=== PATIENT | male | born 1940 | race Caucasian/White ===

== ENCOUNTER 2025-07-12 08:08 | Observation (INO) ==
--- NOTE | 2025-07-12 08:34 | Emergency Department Note ---
Impression & Plan COVID-19, Hypomagnesemia, Orthostasis, Hypotension, Generalized weakness ED Provider Note NAME: CALEB JOYNER AGE: 85 SEX: M : 1940 ARRIVES VIA: Walk-In INFORMANT: Patient ED PROVIDER(S): Pola Kwong MD CHIEF COMPLAINT: Weakness, dizziness, shortness of breath PLAN: Disposition: Admit MEDICAL DECISION MAKING: The patient is a pleasant 85-year-old gentleman with a past medical of dementia, hypertension, hyperlipidemia, diabetes, BPH who presents to the emergency department via walk-in companied by his daughter and referred by his personal- longterm for evaluation of dizziness, generalized weakness and shortness of breath this morning in setting of having cough congestion and weakness progressing over the past several days. Patient reports that when he was getting up this morning he began to feel acutely dizzy and short of breath. On evaluation the patient is fatigued appearing but no distress, afebrile heart in the 90s and blood pressure 90/50s and vital signs otherwise stable. He appears clinically dry. He exhibits no focal neurologic deficits. Lungs with scant intermittent wheeze and otherwise clear. EKG without overt acute ischemia. CXR negative for acute cardiopulmonary process per my personal preliminary review/interpretation. WBC and platelets within normal limits. H/H 10.7/30.1 without prior for comparison. Chemistry without metabolic acidosis. Magnesium 1.3 with IV repletion initiated. LFTs unremarkable. Initial high-sensitivity troponin 80, nonspecific. Lipase is normal. Procalcitonin is not elevated. TSH within normal limits. UA without convincing evidence of infection. Respiratory BioFire was positive for COVID-19. Patient did feel some improvement following IV fluid hydration. Blood pressure improved and stable. Given the patient's generalized weakness in setting of his age and comorbidities, the patient and his daughter agree with plan for admission for further management. Case was discussed with Bria Melchor PAC with Dr. Larios, [facility] hospitalist, who will evaluate the patient for admission. Further management per admitting team. Triage Nursing notes reviewed and agree them. Prior/external medical records reviewed Vital Signs: reviewed Differential diagnosis: Infection, dehydration, metabolic abnormality, hypo/hyperglycemia, electrolyte disturbance, anemia, hypoxia, cardiac sources, intracerebral event, toxicologic, neurologic, as well as other pathologies. ER treatment provided: See below. Diagnostics interpreted by me: ECG: Sinus rhythm with premature supraventricular complexes, 88 bpm, nonspecific ST and T wave abnormality, no overt ST elevation or depression, QTc 408, QRS 60. Cardiac Monitoring: An order for continuous cardiac monitoring was placed and demonstrated sinus rhythm, 88 bpm, premature supraventricular complexes. Laboratory studies: See below Imaging studies: See below Consultation(s): Case was discussed with Bria Brower [facility] PAC with Dr. Larios, [facility] hospitalist, who will evaluate the patient for admission. HPI: Per MDM. ROS: See above HPI for pertinent positives & negatives. A total of 10 systems reviewed and were otherwise negative. VITALS:See Below PHYSICAL EXAMINATION: GENERAL: Awake, alert, fatigued-appearing, in no distress HENT: Normocephalic, atraumatic. Oropharynx with dry mucous membranes and otherwise unremarkable. EYES: Normal conjunctiva. Sclera non-icteric. EOMI. No nystamgus. PEARRL. NECK: Supple. No nuchal rigidity. FROM. No JVD. RESPIRATORY: Clear to auscultation. CARDIAC: Regular rate, normal rhythm. Extremities warm and well perfused. Pulses equal. ABDOMEN: Soft, non-distended. No tenderness to palpation. No rebound or guarding. No masses. MUSCULOSKELETAL: Chest examination reveals no tenderness. The back is symmetrical on inspection without obvious abnormality. There is no CVA tenderness to palpation. No joint edema. LOWER EXTREMITIES: Calves are equal size bilaterally and non-tender. No edema. No discoloration. NEURO: Cranial nerves II-XII grossly intact. 5/5 strength and SILT x 4 extremities. Intact [id number]. SKIN: No rash or jaundice noted. Pola Kwong MD Past Med/Surg History Problem List (Updated 07/12/25 @ 23:59 by Pola Kwong MD) Hypotension (Acute) Orthostasis (Acute) Generalized weakness (Acute) Hypomagnesemia (Acute) COVID-19 (Acute) Social History Smoking Status: Former smoker Tobacco Type: Cigarettes Second Hand Exposure: No; Do You Dip or Chew Tobacco: No; Hx Alcohol Use: Yes Alcohol type: beer Hx Substance Use: No Preferred Language: Citizen Of [place] Communication Ability: Effective Electrical Sign Wirer Helper Required: No Beliefs That Will Affect Care: None Current Living Situation Comment: [facility] Feels Safe at Home: Yes Assistive Devices: Denture - Upper and Glasses Allergies Allergies Allergy/AdvReac Type Severity Reaction Status Date / Time No Known Allergies Allergy Verified 07/04/25 11:23 Home Meds Home Medications Medication Instructions Recorded Confirmed atorvastatin 40 mg tablet 40 mg PO DAILY 07/04/25 07/12/25 bicalutamide 50 mg tablet 50 mg PO DAILY 07/04/25 07/12/25 buspirone 10 mg tablet 10 mg PO TID 07/04/25 07/12/25 escitalopram oxalate 20 mg tablet 20 mg PO DAILY 07/04/25 07/12/25 insulin glargine 100 unit/mL (3 10 unit subcut BID 07/04/25 07/12/25 mL) subcutaneous pen (Lantus Solostar U-100 Insulin) metformin 500 mg tablet 1,000 mg PO BID 07/04/25 07/12/25 tamsulosin 0.4 mg capsule 0.4 mg PO DAILY 07/04/25 07/12/25 Jardiance 50 mg PO DAILY 07/12/25 07/12/25 Results & Data (ED) Vital Signs Vital Signs - 24 hr 07/12/25 08:09 07/12/25 08:16 07/12/25 08:32 Temperature 36.7 C Temperature Source Skin Pulse Rate 92 H 92 H Pulse Rate from SpO2 Sensor Respiratory Rate 20 20 Respiratory Effort / Characteristics Non-Labored Spontaneous Respiratory Depth Normal Respiratory Pattern Regular Blood Pressure 92/54 L Blood Pressure Mean 66 Pulse Oximetry 97 97 Oxygen Delivery Method Room Air Room Air Room Air Sepsis Recent Fever Within 48 Hours No Sepsis New/Unexplained Change in Mental Status N/A Sepsis Action Taken by Nursing No Action Required 07/12/25 08:57 07/12/25 09:00 07/12/25 09:03 Temperature Temperature Source Pulse Rate 130 H 142 H 85 Pulse Rate from SpO2 Sensor 86 Respiratory Rate 17 16 Respiratory Effort / Characteristics Respiratory Depth Respiratory Pattern Blood Pressure Blood Pressure Mean Pulse Oximetry 98 Oxygen Delivery Method Sepsis Recent Fever Within 48 Hours Sepsis New/Unexplained Change in Mental Status Sepsis Action Taken by Nursing 07/12/25 09:06 07/12/25 09:06 07/12/25 09:06 Temperature Temperature Source Pulse Rate 131 H Pulse Rate from SpO2 Sensor 88 Respiratory Rate 24 Respiratory Effort / Characteristics Respiratory Depth Respiratory Pattern Blood Pressure 174/80 H 174/80 H Blood Pressure Mean 108 108 Pulse Oximetry 97 Oxygen Delivery Method Sepsis Recent Fever Within 48 Hours Sepsis New/Unexplained Change in Mental Status Sepsis Action Taken by Nursing 07/12/25 09:06 07/12/25 09:06 07/12/25 09:06 Temperature Temperature Source Pulse Rate Pulse Rate from SpO2 Sensor Respiratory Rate Respiratory Effort / Characteristics Respiratory Depth Respiratory Pattern Blood Pressure 174/80 H 174/80 H 174/80 H Blood Pressure Mean 108 108 108 Pulse Oximetry Oxygen Delivery Method Sepsis Recent Fever Within 48 Hours Sepsis New/Unexplained Change in Mental Status Sepsis Action Taken by Nursing 07/12/25 09:12 07/12/25 09:21 07/12/25 09:30 Temperature Temperature Source Pulse Rate 81 91 H 83 Pulse Rate from SpO2 Sensor 80 89 84 Respiratory Rate 24 19 18 Respiratory Effort / Characteristics Respiratory Depth Respiratory Pattern Blood Pressure Blood Pressure Mean Pulse Oximetry 98 99 98 Oxygen Delivery Method Sepsis Recent Fever Within 48 Hours Sepsis New/Unexplained Change in Mental Status Sepsis Action Taken by Nursing 07/12/25 09:31 07/12/25 09:31 07/12/25 09:31 Temperature Temperature Source Pulse Rate Pulse Rate from SpO2 Sensor Respiratory Rate Respiratory Effort / Characteristics Respiratory Depth Respiratory Pattern Blood Pressure 158/70 H 158/70 H 158/70 H Blood Pressure Mean 108 108 108 Pulse Oximetry Oxygen Delivery Method Sepsis Recent Fever Within 48 Hours Sepsis New/Unexplained Change in Mental Status Sepsis Action Taken by Nursing 07/12/25 09:31 07/12/25 09:31 07/12/25 09:42 Temperature Temperature Source Pulse Rate 80 Pulse Rate from SpO2 Sensor 80 Respiratory Rate 19 Respiratory Effort / Characteristics Respiratory Depth Respiratory Pattern Blood Pressure 158/70 H 158/70 H Blood Pressure Mean 108 108 Pulse Oximetry 99 Oxygen Delivery Method Sepsis Recent Fever Within 48 Hours Sepsis New/Unexplained Change in Mental Status Sepsis Action Taken by Nursing 07/12/25 09:51 07/12/25 09:51 07/12/25 10:00 Temperature Temperature Source Pulse Rate 90 83 Pulse Rate from SpO2 Sensor 90 82 Respiratory Rate 19 19 Respiratory Effort / Characteristics Non-Labored Spontaneous Respiratory Depth Shallow Respiratory Pattern Blood Pressure Blood Pressure Mean Pulse Oximetry 98 98 Oxygen Delivery Method Room Air Sepsis Recent Fever Within 48 Hours Sepsis New/Unexplained Change in Mental Status Sepsis Action Taken by Nursing 07/12/25 10:00 07/12/25 10:00 07/12/25 10:00 Temperature Temperature Source Pulse Rate Pulse Rate from SpO2 Sensor Respiratory Rate Respiratory Effort / Characteristics Respiratory Depth Respiratory Pattern Blood Pressure 137/68 137/68 137/68 Blood Pressure Mean 100 100 100 Pulse Oximetry Oxygen Delivery Method Sepsis Recent Fever Within 48 Hours Sepsis New/Unexplained Change in Mental Status Sepsis Action Taken by Nursing 07/12/25 10:00 07/12/25 10:00 07/12/25 10:12 Temperature Temperature Source Pulse Rate 82 Pulse Rate from SpO2 Sensor 80 Respiratory Rate 15 Respiratory Effort / Characteristics Respiratory Depth Respiratory Pattern Blood Pressure 137/68 137/68 Blood Pressure Mean 100 100 Pulse Oximetry 97 Oxygen Delivery Method Sepsis Recent Fever Within 48 Hours Sepsis New/Unexplained Change in Mental Status Sepsis Action Taken by Nursing 07/12/25 10:21 07/12/25 10:30 07/12/25 10:42 Temperature Temperature Source Pulse Rate 83 78 76 Pulse Rate from SpO2 Sensor 82 78 77 Respiratory Rate 17 21 15 Respiratory Effort / Characteristics Respiratory Depth Respiratory Pattern Blood Pressure Blood Pressure Mean Pulse Oximetry 98 98 97 Oxygen Delivery Method Sepsis Recent Fever Within 48 Hours Sepsis New/Unexplained Change in Mental Status Sepsis Action Taken by Nursing 07/12/25 11:00 07/12/25 11:03 07/12/25 11:06 Temperature Temperature Source Pulse Rate 96 H 90 88 Pulse Rate from SpO2 Sensor 97 H 92 H 88 Respiratory Rate 19 20 Respiratory Effort / Characteristics Respiratory Depth Respiratory Pattern Blood Pressure Blood Pressure Mean Pulse Oximetry 96 97 98 Oxygen Delivery Method Sepsis Recent Fever Within 48 Hours Sepsis New/Unexplained Change in Mental Status Sepsis Action Taken by Nursing 07/12/25 11:06 07/12/25 11:06 07/12/25 11:06 Temperature Temperature Source Pulse Rate Pulse Rate from SpO2 Sensor Respiratory Rate Respiratory Effort / Characteristics Respiratory Depth Respiratory Pattern Blood Pressure 137/68 137/68 137/68 Blood Pressure Mean 115 115 115 Pulse Oximetry Oxygen Delivery Method Sepsis Recent Fever Within 48 Hours Sepsis New/Unexplained Change in Mental Status Sepsis Action Taken by Nursing 07/12/25 11:06 07/12/25 11:06 07/12/25 11:12 Temperature Temperature Source Pulse Rate 83 Pulse Rate from SpO2 Sensor 82 Respiratory Rate 13 Respiratory Effort / Characteristics Respiratory Depth Respiratory Pattern Blood Pressure 137/68 137/68 Blood Pressure Mean 115 115 Pulse Oximetry 98 Oxygen Delivery Method Sepsis Recent Fever Within 48 Hours Sepsis New/Unexplained Change in Mental Status Sepsis Action Taken by Nursing 07/12/25 11:21 07/12/25 11:30 07/12/25 11:30 Temperature Temperature Source Pulse Rate 88 Pulse Rate from SpO2 Sensor 87 Respiratory Rate 18 Respiratory Effort / Characteristics Respiratory Depth Respiratory Pattern Blood Pressure 137/62 137/62 Blood Pressure Mean 84 84 Pulse Oximetry 97 Oxygen Delivery Method Sepsis Recent Fever Within 48 Hours Sepsis New/Unexplained Change in Mental Status Sepsis Action Taken by Nursing 07/12/25 11:30 07/12/25 11:30 07/12/25 11:30 Temperature Temperature Source Pulse Rate Pulse Rate from SpO2 Sensor Respiratory Rate Respiratory Effort / Characteristics Respiratory Depth Respiratory Pattern Blood Pressure 137/62 137/62 137/62 Blood Pressure Mean 84 84 84 Pulse Oximetry Oxygen Delivery Method Sepsis Recent Fever Within 48 Hours Sepsis New/Unexplained Change in Mental Status Sepsis Action Taken by Nursing 07/12/25 11:30 Temperature Temperature Source Pulse Rate 79 Pulse Rate from SpO2 Sensor 78 Respiratory Rate 19 Respiratory Effort / Characteristics Respiratory Depth Respiratory Pattern Blood Pressure Blood Pressure Mean Pulse Oximetry 98 Oxygen Delivery Method Sepsis Recent Fever Within 48 Hours Sepsis New/Unexplained Change in Mental Status Sepsis Action Taken by Nursing Laboratory Data Attestation: I reviewed the patient's lab results. 07/12/25 08:39 07/12/25 08:39 Lab Results 07/12/25 07/12/25 07/12/25 Range/Units 08:39 08:43 08:50 WBC 5.70 (4.8-10.8) K/ul RBC 3.54 L (4.70-6.10) M/uL Hgb 10.7 L (14.0-18.0) g/dL Hct 30.1 L (42.0-52.0) % MCV 85.0 (80.0-100.0) fL MCH 30.2 (25.0-34.0) pg MCHC 35.5 (32.0-36.0) g/dL RDW Std Deviation 41.1 (36.4-46.3) fL RDW Coeff of Cesar 13.2 (11.5-14.5) % Plt Count 137 (130-400) K/uL MPV 11.6 (9.4-12.4) fL Immature Gran % (Auto) 0.4 % Neut % (Auto) 81.1 % Lymph % (Auto) 8.6 % [place] % (Auto) 9.5 % Eos % (Auto) 0.2 % Baso % (Auto) 0.2 % Neut # (Auto) 4.63 (1.40-6.50) K/uL Lymph # (Auto) 0.49 L (1.20-3.40) K/uL [place] # (Auto) 0.54 (0.11-0.59) K/uL Eos # (Auto) 0.01 (0.00-0.50) K/uL Baso # (Auto) 0.01 (0.00-0.20) K/uL Immature Gran # (Auto) 0.02 (0.01-0.20) K/uL PT 11.7 (9.0-12.0) Seconds INR 1.1 (0.9-1.1) Sodium 135 L (136-145) mmol/L Potassium 4.3 (3.5-5.1) mmol/L Chloride 101 (98-107) mmol/L Carbon Dioxide 26 (21-32) mmol/L Anion Gap 8 (3-11) BUN 19 (6-23) mg/dl Creatinine 1.25 (0.6-1.4) mg/dl Est Cr Clr Drug Dosing 44.0 ml/min eGFR 56.78 BUN/Creatinine Ratio 15.2 (10-20) Glucose 288 H (70-99(Fasting)) mg/dl Calcium 9.1 (8.6-10.3) mg/dl Phosphorus 3.1 (2.5-4.9) mg/dl Magnesium 1.3 L (1.7-2.4) mg/dl Total Bilirubin 0.7 (0.2-1.0) mg/dl AST 13 (13-39) U/L ALT 11 (7-52) U/L Alkaline Phosphatase 85 (34-104) U/L Troponin I High Sens 83.7 H* (0-20) pg/ml Total Protein 6.6 (6.0-8.3) gm/dl Albumin 4.3 (3.4-5.0) gm/dl Globulin 2.3 L (2.5-4.0) gm/dl Albumin/Globulin Ratio 1.9 (0.9-2) Lipase 26 (11-82) U/L Procalcitonin 0.11 (0-0.5) ng/ml TSH 2.294 (0.300-4.500) uIu/ml Urine Color Yellow Urine Appearance Clear (Clear) Urine pH 5.5 (4.5-7.5) Ur Specific [place] 1.017 (1.000-1.030) Urine Protein 1+ H (Negative) Urine Glucose (UA) 1+ H (Negative) Urine Ketones Negative (Negative) Urine Blood Negative (Negative) Urine Nitrite Negative (Negative) Urine Bilirubin Negative (Negative) Urine Urobilinogen Negative (Negative) Ur Leukocyte Esterase Negative (Negative) Urine WBC (Auto) 0-5 (0-5) /hpf Urine RBC (Auto) 0-2 (0-2) /hpf U Hyaline Cast (Auto) 0-2 (0-2) /lpf U Epithel Cells (Auto) 0-2 (0-2) /hpf Urine Bacteria (Auto) None Seen (None Seen) Urine Comment Adenovirus (PCR) Not Detected (NotDetected) B. pertussis DNA (PCR) Not Detected (NotDetected) B.parapertussis DNA PCR Not Detected (NotDetected) C. pneumoniae DNA (PCR) Not Detected (NotDetected) Coronavirus OC43 (PCR) Not Detected (NotDetected) Coronavirus HKU1 (PCR) Not Detected (NotDetected) Coronavirus 229E (PCR) Not Detected (NotDetected) SARS-CoV-2 (PCR) DETECTED A (NotDetected) Coronavirus NL63 (PCR) Not Detected (NotDetected) Human Metapneumovir PCR Not Detected (NotDetected) Influenza Type A (PCR) Not Detected (NotDetected) Influenza Type B (PCR) Not Detected (NotDetected) M. pneumoniae (PCR) Not Detected (NotDetected) Parainfluenza 1 (PCR) Not Detected (NotDetected) Parainfluenza 2 (PCR) Not Detected (NotDetected) Parainfluenza 3 (PCR) Not Detected (NotDetected) Parainfluenza 4 (PCR) Not Detected (NotDetected) RSV (PCR) Not Detected (NotDetected) Entero/Rhino (PCR) Not Detected (NotDetected) 07/12/25 Range/Units 10:31 WBC (4.8-10.8) K/ul RBC (4.70-6.10) M/uL Hgb (14.0-18.0) g/dL Hct (42.0-52.0) % MCV (80.0-100.0) fL MCH (25.0-34.0) pg MCHC (32.0-36.0) g/dL RDW Std Deviation (36.4-46.3) fL RDW Coeff of Cesar (11.5-14.5) % Plt Count (130-400) K/uL MPV (9.4-12.4) fL Immature Gran % (Auto) % Neut % (Auto) % Lymph % (Auto) % [place] % (Auto) % Eos % (Auto) % Baso % (Auto) % Neut # (Auto) (1.40-6.50) K/uL Lymph # (Auto) (1.20-3.40) K/uL [place] # (Auto) (0.11-0.59) K/uL Eos # (Auto) (0.00-0.50) K/uL Baso # (Auto) (0.00-0.20) K/uL Immature Gran # (Auto) (0.01-0.20) K/uL PT (9.0-12.0) Seconds INR (0.9-1.1) Sodium (136-145) mmol/L Potassium (3.5-5.1) mmol/L Chloride (98-107) mmol/L Carbon Dioxide (21-32) mmol/L Anion Gap (3-11) BUN (6-23) mg/dl Creatinine (0.6-1.4) mg/dl Est Cr Clr Drug Dosing ml/min eGFR BUN/Creatinine Ratio (10-20) Glucose (70-99(Fasting)) mg/dl Calcium (8.6-10.3) mg/dl Phosphorus (2.5-4.9) mg/dl Magnesium (1.7-2.4) mg/dl Total Bilirubin (0.2-1.0) mg/dl AST (13-39) U/L ALT (7-52) U/L Alkaline Phosphatase (34-104) U/L Troponin I High Sens 100.2 H* (0-20) pg/ml Total Protein (6.0-8.3) gm/dl Albumin (3.4-5.0) gm/dl Globulin (2.5-4.0) gm/dl Albumin/Globulin Ratio (0.9-2) Lipase (11-82) U/L Procalcitonin (0-0.5) ng/ml TSH (0.300-4.500) uIu/ml Urine Color Urine Appearance (Clear) Urine pH (4.5-7.5) Ur Specific [place] (1.000-1.030) Urine Protein (Negative) Urine Glucose (UA) (Negative) Urine Ketones (Negative) Urine Blood (Negative) Urine Nitrite (Negative) Urine Bilirubin (Negative) Urine Urobilinogen (Negative) Ur Leukocyte Esterase (Negative) Urine WBC (Auto) (0-5) /hpf Urine RBC (Auto) (0-2) /hpf U Hyaline Cast (Auto) (0-2) /lpf U Epithel Cells (Auto) (0-2) /hpf Urine Bacteria (Auto) (None Seen) Urine Comment Adenovirus (PCR) (NotDetected) B. pertussis DNA (PCR) (NotDetected) B.parapertussis DNA PCR (NotDetected) C. pneumoniae DNA (PCR) (NotDetected) Coronavirus OC43 (PCR) (NotDetected) Coronavirus HKU1 (PCR) (NotDetected) Coronavirus 229E (PCR) (NotDetected) SARS-CoV-2 (PCR) (NotDetected) Coronavirus NL63 (PCR) (NotDetected) Human Metapneumovir PCR (NotDetected) Influenza Type A (PCR) (NotDetected) Influenza Type B (PCR) (NotDetected) M. pneumoniae (PCR) (NotDetected) Parainfluenza 1 (PCR) (NotDetected) Parainfluenza 2 (PCR) (NotDetected) Parainfluenza 3 (PCR) (NotDetected) Parainfluenza 4 (PCR) (NotDetected) RSV (PCR) (NotDetected) Entero/Rhino (PCR) (NotDetected) Administered Medications Albuterol (Albut/Ipratrop 3mg/0.5mg Neb 3 Ml Vial) 3 ml NEB Q2H PRN; Protocol PRN Reason: sob wheeze Stop: 08/11/25 19:25 Last Admin: 07/12/25 21:33 Dose: 3 ml Documented By: BRENNON Buspirone HCl (Buspirone 5 Mg Tab) 10 mg PO TID [facility] Stop: 08/11/25 13:59 Last Admin: 07/12/25 21:22 Dose: 10 mg Documented By: Admin: 07/12/25 16:19 Dose: 10 mg Documented By: [email or web address] Guaifenesin (Guaifenesin 600 Mg Tabcr) 600 mg PO Q12 [facility] Stop: 08/11/25 20:59 Last Admin: 07/12/25 21:42 Dose: 600 mg Documented By: BARRIE Heparin Sodium (Porcine) (Heparin Sod 5,000 Unit/0.5 Ml Vial) 5,000 units SQ Q8 [facility] Stop: 08/11/25 15:27 Last Admin: 07/12/25 21:23 Dose: 5,000 units Documented By: Admin: 07/12/25 16:19 Dose: 5,000 units Documented By: jacinta Sodium Chloride (Nss) 1,000 mls @ 60 mls/hr IV .[id number] [facility] Stop: 07/13/25 08:51 Last Admin: 07/12/25 16:19 Dose: 60 mls/hr Documented By: [email or web address] Insulin Aspart (Insulin Aspart Per Unit Charge) 0 units SC ACHS [facility] Stop: 08/11/25 12:44 Last Admin: 07/12/25 21:01 Dose: Not Given Documented By: Admin: 07/12/25 18:39 Dose: 8 units Documented By: [email or web address] Co-signed By: JOCE Admin: 07/12/25 14:27 Dose: 3 units Documented By: Co-signed By: DANTE Insulin Glargine (Lantus Per Unit Charge) 0 units SC [facility]; Protocol Stop: 08/11/25 20:59 Last Admin: 07/12/25 21:01 Dose: Not Given Documented By: BARRIE Menthol (Cough Drop (Sugar Free) Goldy 24 Goldy/1 Box) 1 goldy BUCCAL Q2H PRN PRN Reason: Sore Throat Stop: 08/11/25 19:40 Last Admin: 07/12/25 21:23 Dose: 1 goldy Documented By: BARRIE Discontinued Medications Sodium Chloride (Nss) 500 mls @ 999 mls/hr IV .Q31M ONE Stop: 07/12/25 09:03 Last Infusion: 07/12/25 13:57 Dose: Infused Documented By: Admin: 07/12/25 09:08 Dose: 999 mls/hr Documented By: miroslava Magnesium Sulfate/Dextrose (Magnesium Sulfate / D5w) 1 gm in 100 mls @ 100 mls/hr IV Q1H DARRIAN Stop: 07/12/25 11:29 Last Infusion: 07/12/25 13:57 Dose: Infused Documented By: Admin: 07/12/25 10:49 Dose: 100 mls/hr Documented By: [email or web address] Infusion: 07/12/25 10:44 Dose: Infused Documented By: miroslava Admin: 07/12/25 09:44 Dose: 100 mls/hr Documented By: miroslava Remdesivir 200 mg/ Sodium (Chloride) 250 mls @ 125 mls/hr IV ONE STA Stop: 07/12/25 14:30 Last Infusion: 07/12/25 16:14 Dose: Infused Documented By: [email or web address] Admin: 07/12/25 13:52 Dose: 125 mls/hr Documented By: Magnesium Sulfate/Dextrose (Magnesium Sulfate / D5w) 1 gm in 100 mls @ 50 mls/hr IV ONE ONE Stop: 07/12/25 21:28 Last Infusion: 07/12/25 22:04 Dose: Infused Documented By: Admin: 07/12/25 19:49 Dose: 50 mls/hr Documented By: BARRIE Insulin Glargine (Lantus Per Unit Charge) 10 units SC ONE ONE Stop: 07/12/25 15:31 Last Admin: 07/12/25 16:19 Dose: 10 units Documented By: [email or web address] Co-signed By: JOCE Levalbuterol HCl (Levalbuterol Hcl 0.63 Mg/3 Ml Neb) 0.63 mg NEB NOW STA; Protocol Stop: 07/12/25 09:03 Last Admin: 07/12/25 09:11 Dose: 0.63 mg Documented By: miroslava Imaging Data Radiologist's Impression: Chest X-Ray 07/12/25 08:32 SINGLE VIEW CHEST CLINICAL HISTORY: Chest pain FINDINGS: 2 AP, portable, upright chest radiographs are obtained. No prior studies are available for comparison at the time of dictation. An electronic device projects over the mediastinum. The heart is enlarged noting atherosclerotic calcification of the thoracic aorta. The pulmonary vasculature is noncongested. Enlargement of the central pulmonary arteries suggests pulmonary artery hypertension. Foci of probable scarring are scattered throughout both lungs. No airspace consolidation or large pleural effusion is identified. There are scattered calcified granulomas. No pneumothorax is seen. The skeletal structures are osteopenic. There are chronic/healed left-sided rib fractures. Arthritic change is seen in the shoulders. IMPRESSION: 1. Cardiomegaly with no acute cardiopulmonary abnormality identified. 2. Enlargement of the central pulmonary arteries suggests pulmonary artery hypertension. ACT 112: Negative or not required by law. Electronically signed by: Emory Akbar M.D. 07/12/2025 9:18 AM Discharge Plan Visit Data Chief Complaint: Shortness of Breath/Dyspnea Stated Complaint: TROUBLE BREATHING ED Provider: Pola Kwong Discharge Problem: COVID-19, Hypomagnesemia, Orthostasis, Hypotension, Generalized weakness Patient Disposition: Admitted As Inpatient Condition: Fair Discharge Instructions Interventions: ED Discharge Assessment Last Done: 07/12/25 14:03 Discharge Problem: Hypotension Qualifiers: Hypotension type: unspecified hypotension type Qualified Code(s): I95.9 - Hypotension, unspecified
[2025-07-12 09:00] LABS: Hematocrit (blood only) 30.1 % (42.0-52.0); Hemoglobin 10.7 g/dL (14.0-18.0); Immature Granulocytes # (auto) 0.02 K/uL (0.01-0.20); Immature Granulocytes % (auto) 0.4 %; Mean Corpuscular Hemoglobin 30.2 pg (25.0-34.0); Mean Corpuscular Volume 85.0 fL (80.0-100.0); Platelet Count 137 K/uL (130-400); RDW Standard Deviation 41.1 fL (36.4-46.3); Red Blood Count 3.54 M/uL (4.70-6.10); White Blood Count 5.70 K/ul (4.8-10.8)
[2025-07-12 09:07] LABS: Appearance Urine Clear (Clear); Bacteria Urine Automated None Seen (None Seen); Cast Urine Automated 0-2 /lpf (0-2); Epithelial Cell Urine Auto 0-2 /hpf (0-2); Glucose Urine UA 1+ (Negative); RBC Urine Automated 0-2 /hpf (0-2); WBC Urine Automated 0-5 /hpf (0-5)
[2025-07-12] MEDS: SODIUM CHLORIDE 0.9% 500 ML IV ONE (09:08)
[2025-07-12] MEDS: LEVALBUTEROL HCL 0.63 MG/3 ML NEB NEB STA (09:11)
[2025-07-12 09:18] LABS: Alanine Aminotransferase 11.0 U/L (7-52); Albumin Globulin Ratio 1.9 (0.9-2); Albumin Level 4.3 gm/dl (3.4-5.0); Alkaline Phosphatase 85.0 U/L (34-104); Anion Gap 8.0 (3-11); Bilirubin,Total 0.7 mg/dl (0.2-1.0); Blood Urea Nitrogen 19.0 mg/dl (6-23); Calcium 9.1 mg/dl (8.6-10.3); Carbon Dioxide 26.0 mmol/L (21-32); Chloride 101.0 mmol/L (98-107); Creatinine Clr Calc Pharmacy 44.0 ml/min; Globulin 2.3 gm/dl (2.5-4.0); Glucose 288.0 mg/dl (70-99(Fasting)); Lipase 26.0 U/L (11-82); Magnesium 1.3 mg/dl (1.7-2.4); Potassium 4.3 mmol/L (3.5-5.1); Sodium 135.0 mmol/L (136-145); Total Protein 6.6 gm/dl (6.0-8.3)
--- NOTE | 2025-07-12 09:20 | XRay Report ---
SINGLE VIEW CHEST CLINICAL HISTORY: Chest pain FINDINGS: 2 AP, portable, upright chest radiographs are obtained. No prior studies are available for comparison at the time of dictation. An electronic device projects over the mediastinum. The heart is enlarged noting atherosclerotic calcification of the thoracic aorta. The pulmonary vasculature is no ncongested. Enlargement of the central pulmonary arteries suggests pulmonary artery hypertension. Foc i of probable scarring are scattered throughout both lungs. No airspace consolidation or large pleura l effusion is identified. There are scattered calcified granulomas. No pneumothorax is seen. The skel etal structures are osteopenic. There are chronic/healed left-sided rib fractures. Arthritic change i s seen in the shoulders. IMPRESSION: 1. Cardiomegaly with no acute cardiopulmonary abnormality identified. 2. Enlargement of the central pulmonary arteries suggests pulmonary artery hypertension. ACT 112: Negative or not required by law. Electronically signed by: Emory Akbar M.D. 07/12/2025 9:18 AM
[2025-07-12 09:23] LABS: INR 1.1 (0.9-1.1); Prothrombin Time 11.7 Seconds (9.0-12.0)
[2025-07-12 09:32] LABS: Thyroid Stimulating Hormone 2.294 uIu/ml (0.300-4.500)
[2025-07-12] MEDS: MAGNESIUM SULFATE / D5W 1 GM/100 ML BAG IV SCH (09:44)
[2025-07-12 10:05] LABS: Chlamydia pneumoniae PCR Not Detected (NotDetected); Coronavirus 229E PCR Not Detected (NotDetected); Coronavirus CoV-2 (COVID19)PCR DETECTED (NotDetected); Coronavirus HKU1 PCR Not Detected (NotDetected); Coronavirus NL63 PCR Not Detected (NotDetected); Coronavirus OC43PCR Not Detected (NotDetected); Human Metapneumovirus PCR Not Detected (NotDetected); Parainfluenza Virus 1 PCR Not Detected (NotDetected); Parainfluenza Virus 2 PCR Not Detected (NotDetected); Parainfluenza Virus 3 PCR Not Detected (NotDetected); Parainfluenza Virus 4 PCR Not Detected (NotDetected); Respiratory Syncytial VirusPCR Not Detected (NotDetected); Rhinovirus/Enterovirus PCR Not Detected (NotDetected)
[2025-07-12] MEDS ORDERED: DEXTROSE 50% 50 ML SYRINGE IV PRN (11:54)
[2025-07-12] MEDS ORDERED: CARBOHYDRATES FOR HYPOGLYCEMIA PO PRN (11:54)
[2025-07-12] MEDS ORDERED: PHARMACY GLYCEMIC MGMT CONSULT PRN (11:54)
[2025-07-12] MEDS ORDERED: GLUCOSE 40% GEL 15 GM TUBE PO PRN (11:54)
[2025-07-12] MEDS ORDERED: GLUCAGON FOR INJ 1 MG VIAL SQ PRN (11:54)
[2025-07-12] MEDS ORDERED: GLUCOSE 10 TAB/TUBE PO PRN (11:54)
--- NOTE | 2025-07-12 13:01 | Pharmacy Report ---
Pharmacy Glycemic Short Note 2 - Date of Service July 12, 2025 - Glycemic Short BSG Results (Last 24 hours): 07/12/25 08:39 Glucose 288 H OUTPATIENT ANTIDIABETIC REGIMEN: * Lantus 10 units bid, metformin 500 mg bid ASSESSMENT: * 85 year old admitted with shortness of breath/testing positive for COVID. Pharmacy consulted for glycemic management. Plan to start novolog weight based stress 2 dosing for now. Will follow to determine if steroids starting as may need to tighten parameters at that time. PLAN FOR INPATIENT GLYCEMIC CONTROL: * Hold outpatient oral diabetes medications * Basal insulin * Lantus 0-10 units HS * Bolus insulin * NovoLog per scale ACHS or Q6hrs while NPO * Goal Range: Low 110 mg/dL - High 140 mg/dL * Correction Factor: 30 mg/dL/unit * Nutritional / Prandial insulin per carb ratio of 1 unit per 10 grams CHO consumed
--- NOTE | 2025-07-12 13:33 | History & Physical Report ---
Date of Service July 12, 2025 Assessment & Plan (1) COVID-19: (2) Generalized weakness: (3) Hypomagnesemia: Plan: 85-year-old male with history of dementia, prostate cancer with metastasis, on Lupron, bicalutamide and Flomax, diabetes type 2, hypertension, dyslipidemia presenting from [facility] care unit for dizziness, weakness and shortness of breath which started yesterday. Generalized weakness, dehydration secondary to COVID-19 infection Patient currently on room air Chest x-ray: No signs of pneumonia Procalcitonin: Negative Initial blood pressure was systolic 90s, given 500 cc of IV fluid bolus, improved to systolic 120s Continue IV NSS at 60 cc/h after discussion with patient's children Rowena and Vivian,In light of advanced age, multiple comorbidities, will initiate remdesivir IV monitor kidney and liver function test daily Start Mucinex twice daily Flutter valve, incentive parameter Nebs as needed Heparin subcu for DVT prophylaxis Mild troponin elevation likely demand ischemia secondary to above No chest pain, EKG no signs of acute ischemia or infarct Troponin 83, 100, third set pending Check echocardiogram Diabetes type 2 Hyperglycemia On Lantus 10 units twice daily, metformin 500 mg twice daily Insulin sliding scale, pharmacy glycemic control consulted Hypomagnesemia Magnesium 1.3 Given 2 mg of IV magnesium at the ER, start p.o. magnesium twice daily Repeat magnesium in the morning Other chronic medical problems prostate cancer with metastasis On bicalutamide, Lupron, Flomax Hypertension-not on any meds Dyslipidemia-on atorvastatin Dementia- On buspirone and escitalopram DVT prophylaxis Heparin subcu every 8 hours CODE STATUS DNR as per daughters Disposition Admit to [facility] with telemetry monitoring plan of care discussed with patient and Daughter Rowena at the bedside, daughter Vivian over the phone in detail and at length all questions answered they are understanding, agreeable, comfortable with the plan of care total time spent 60 minutes including discussion with ER provider, review of outpatient inpatient charts, history taking and physical exam of the patient,formulation of plan of care, etc History of Present Illness Chief Complaint: dizziness, weakness, shortness of breath since yesterday Primary Care Provider: Waldo Bowman MD 85-year-old male with history of dementia, prostate cancer with metastasis, on Lupron, bicalutamide and Flomax, diabetes type 2, hypertension, dyslipidemia presenting from [facility] for dizziness, weakness and shortness of breath which started yesterday. History obtained from patient's daughter Rowena at bedside, as well as ER chart. Patient is a current resident of [facility] unit. He was noted to have dry cough, associated with some shortness of breath, and weakness since yesterday. No fevers or chills, arthralgias myalgias, nausea or vomiting, abdominal pain Admits to having poor appetite Today, patient was noted to be very weak to the point that he was unable to get up from bed with persistent dizziness, and shortness of breath. At the ER, blood pressure was 92/54, heart rate 92, respiratory 20, pulse oximetry 97% on room air chest x-ray: No pneumonia Respiratory panel positive for COVID-19 Magnesium 1.3 Patient was given 500 cc bolus of IV NSS, IV magnesium blood pressure then improved to systolic 120s On exam, Patient seen resting in bed, comfortable, not in distress, very pleasant Daughter Rowena at the bedside He is oriented x 2-3, answering simple questions appropriately States he feels "so-so" breathing is okay, denies active chest pain, dizziness, headache, abdominal pain, nausea No other new symptoms Allergies Allergy/AdvReac Type Severity Reaction Status Date / Time No Known Allergies Allergy Verified 07/04/25 11:23 Home Medications Medication Instructions Recorded Confirmed Type atorvastatin 40 mg tablet 40 mg PO DAILY 07/04/25 07/04/25 History bicalutamide 50 mg tablet 50 mg PO DAILY 07/04/25 07/04/25 History buspirone 10 mg tablet 10 mg PO TID 07/04/25 07/04/25 History escitalopram oxalate 20 mg tablet 20 mg PO DAILY 07/04/25 07/04/25 History insulin glargine 100 unit/mL (3 10 unit subcut BID 07/04/25 07/04/25 History mL) subcutaneous pen (Lantus Solostar U-100 Insulin) metformin 500 mg tablet 500 mg PO BID 07/04/25 07/04/25 History tamsulosin 0.4 mg capsule 0.4 mg PO DAILY 07/04/25 07/04/25 History Past Med/Surg History Problem List (Updated 07/12/25 @ 13:28 by Av Larios MD) Generalized weakness Hypomagnesemia (Acute) COVID-19 (Acute) Social History Smoking Status: Former smoker Tobacco Type: Cigarettes Feels Safe at Home: Yes Review of Systems Review of Systems: all noted and negative except for above Physical Exam Physical Exam: General- oriented x 2-3, not in distress, speaks in sentences with no effort or accessory muscle use Head- atraumatic Eyes- PERRL, EOMI, anicteric ENT- (+)dry oral mucosa, oropharynx clear Neck- supple, no JVD, no adenopathy, no thyromegaly; carotids +2/2, no bruits appreciated Lungs- Intermittent rhonchi bilaterally, no wheezing Good air entry bilaterally Heart- normal rate, regular rhythm; no murmur, no gallop, no rub appreciated Abdomen- normal bowel sounds, nondistended, soft, nontender, no masses or hepatosplenomegaly Extremities- no pretibial edema, no calf tenderness; peripheral pulses intact Neuro- alert, oriented x 2-3; CN 2-12 grossly intact; motor 5/5 bilaterally;sensation 100% on all extremities; no other gross focal neurologic d eficits Skin- warm & dry Results & Data Results & Data Vital Signs (Past 12 Hours) Vital Signs Temp Pulse Resp BP Pulse Ox O2 Del Method 07/12/25 13:12 69 07/12/25 12:12 79 17 97 07/12/25 12:00 81 15 93 07/12/25 12:00 129/62 07/12/25 12:00 129/62 07/12/25 12:00 129/62 07/12/25 12:00 129/62 07/12/25 12:00 129/62 07/12/25 11:51 81 17 96 07/12/25 11:42 83 25 H 96 07/12/25 11:30 79 19 98 07/12/25 11:30 137/62 07/12/25 11:30 137/62 07/12/25 11:30 137/62 07/12/25 11:30 137/62 07/12/25 11:30 137/62 07/12/25 11:21 88 18 97 07/12/25 11:12 83 13 98 07/12/25 11:06 137/68 07/12/25 11:06 137/68 07/12/25 11:06 137/68 07/12/25 11:06 137/68 07/12/25 11:06 137/68 07/12/25 11:06 88 20 98 07/12/25 11:03 90 19 97 07/12/25 11:00 96 H 96 07/12/25 10:42 76 15 97 07/12/25 10:30 78 21 98 07/12/25 10:21 83 17 98 07/12/25 10:12 82 15 97 07/12/25 10:00 137/68 07/12/25 10:00 137/68 07/12/25 10:00 137/68 07/12/25 10:00 137/68 07/12/25 10:00 137/68 07/12/25 10:00 83 19 98 07/12/25 09:51 90 19 98 07/12/25 09:51 Room Air 07/12/25 09:42 80 19 99 07/12/25 09:31 158/70 H 07/12/25 09:31 158/70 H 07/12/25 09:31 158/70 H 07/12/25 09:31 158/70 H 07/12/25 09:31 158/70 H 07/12/25 09:30 83 18 98 07/12/25 09:21 91 H 19 99 07/12/25 09:12 81 24 98 07/12/25 09:06 174/80 H 07/12/25 09:06 174/80 H 07/12/25 09:06 174/80 H 07/12/25 09:06 174/80 H 07/12/25 09:06 174/80 H 07/12/25 09:06 131 H 24 97 07/12/25 09:03 85 07/12/25 09:00 142 H 16 98 07/12/25 08:57 130 H 17 07/12/25 08:32 92 H 20 97 Room Air 07/12/25 08:16 36.7 C 92 H 20 92/54 L 97 Room Air 07/12/25 08:09 Room Air Code Status & VTE Plan VTE Prophylaxis Plan VTE Prophylaxis will be ordered: Yes
[2025-07-12] MEDS: REMDESIVIR 200 MG in SODIUM CHLORIDE 0.9% 210 ML IV STA (13:52)
[2025-07-12] MEDS: INSULIN ASPART PER UNIT CHARGE SC SCH (14:27)
[2025-07-12] MEDS ORDERED: ACETAMINOPHEN 325 MG TAB PO PRN (15:28)
--- NOTE | 2025-07-12 15:56 | XCELERA ---
[id number]
[2025-07-12] MEDS: busPIRone 5 MG TAB PO SCH (16:19)
[2025-07-12] MEDS: LANTUS PER UNIT CHARGE SC ONE (16:19)
[2025-07-12] MEDS: SODIUM CHLORIDE 0.9% 1,000 ML IV SCH (16:19)
[2025-07-12] MEDS: HEPARIN SOD 5,000 UNIT/0.5 ML VIAL SQ SCH (16:19)
[2025-07-12] MEDS: MAGNESIUM SULFATE / D5W 1 GM/100 ML BAG IV ONE (19:49)
--- NOTE | 2025-07-12 20:02 | XRay Report ---
Chest radiograph, one view History: Chest pain Comparison: None Findings: Single AP view of the chest performed. No focal consolidation or pleural effusion. No pneumothorax. The cardiomediastinal silhouette is within normal limits. Normal pulmonary vascularity. No evidence for lymphadenopathy. Left rib deformity seen. No visualized bony or soft tissue abnormality. Left chest wall loop recorder device. Impression: Normal chest radiograph Electronically signed by Thomas Osorio 07-12-2025 8:02 PM
[2025-07-12] MEDS: LANTUS PER UNIT CHARGE SC SCH (21:01)
[2025-07-12] MEDS: COUGH DROP (SUGAR FREE) LOZ 24 LOZ/1 BOX BUCCAL PRN (21:23)
[2025-07-12] MEDS: ALBUT/IPRATROP 3MG/0.5MG NEB 3 ML VIAL NEB PRN (21:33)
[2025-07-12] MEDS: guaiFENesin 600 MG TABCR PO SCH (21:42)
[2025-07-13 07:56] LABS: Hematocrit (blood only) 31.3 % (42.0-52.0); Hemoglobin 10.8 g/dL (14.0-18.0); Immature Granulocytes # (auto) 0.02 K/uL (0.01-0.20); Immature Granulocytes % (auto) 0.4 %; Mean Corpuscular Hemoglobin 29.4 pg (25.0-34.0); Mean Corpuscular Volume 85.3 fL (80.0-100.0); Platelet Count 126 K/uL (130-400); RDW Standard Deviation 42.5 fL (36.4-46.3); Red Blood Count 3.67 M/uL (4.70-6.10); White Blood Count 5.19 K/ul (4.8-10.8)
[2025-07-13 08:27] LABS: Alanine Aminotransferase 12.0 U/L (7-52); Albumin Globulin Ratio 1.8 (0.9-2); Albumin Level 4.0 gm/dl (3.4-5.0); Alkaline Phosphatase 78.0 U/L (34-104); Anion Gap 7.0 (3-11); Bilirubin,Total 0.5 mg/dl (0.2-1.0); Blood Urea Nitrogen 14.0 mg/dl (6-23); Calcium 9.0 mg/dl (8.6-10.3); Carbon Dioxide 27.0 mmol/L (21-32); Chloride 104.0 mmol/L (98-107); Creatinine Clr Calc Pharmacy 53.9 ml/min; Globulin 2.2 gm/dl (2.5-4.0); Glucose 115.0 mg/dl (70-99(Fasting)); Magnesium 1.8 mg/dl (1.7-2.4); Potassium 4.0 mmol/L (3.5-5.1); Sodium 138.0 mmol/L (136-145); Total Protein 6.2 gm/dl (6.0-8.3)
[2025-07-13] MEDS: ATORVASTATIN 40 MG TAB PO SCH (08:45)
[2025-07-13] MEDS: ESCITALOPRAM OXALATE 20 MG TAB PO SCH (08:45)
[2025-07-13] MEDS: BICALUTAMIDE 50 MG TAB PO SCH (08:45)
[2025-07-13] MEDS: TAMSULOSIN HCL 0.4 MG CAP PO SCH (08:45)
--- NOTE | 2025-07-13 09:15 | Hospitalist Progress Note ---
Date of Service July 13, 2025 Assessment & Plan (1) Acute bronchitis due to COVID-19 virus: (2) Myocardial infarction due to demand ischemia: (3) Prostate cancer metastatic to bone: (4) Diabetes mellitus type 2, controlled, with complications: (5) Dementia in Alzheimer's disease: Plan Patient 85-year-old gentleman with acute bronchitis due to COVID-19. High risk for severe disease based on his medical comorbidities. Currently maintaining adequate O2 sat on room air Continue prophylactic treatment of with remdesivir minimum 3 days Continue other supportive care with mucolytic's and antitussives Patient is having some bronchospasm, scheduled DuoNeb. Hypertonic saline nebs for mucolytic Continue to monitor glucose, cover with long-acting insulin as well as short acting insulin Continue other outpatient medications Troponins increased due to COVID-19, demand ischemia, continue medical management Therapies as anticipate returning to memory care Case management to coordinate discharge back to memory care versus skilled Phone update to patient's daughter Admission and Anticipated Discharge Date Admission Date: July 12, 2025 Subjective Patient still with thick, productive cough. Feels as though has a lot of postnasal drip and mucus getting caught in his throat. Nurse reports still fairly dyspneic with any type of activity Physical Exam Physical Exam: Constitutional: Alert, nontoxic, mild distress due to congestion HEENT: Mucous membranes moist. Lungs: Decreased breath sounds, prolonged expiratory phase, coarse rhonchi that does improve slightly with cough, upper airway wheezing CV: S1-S2, regular, systolic murmur Abdomen: Soft, nontender, nondistended Extremities: No significant edema Neuro: No focal deficits, generally weak, impaired memory Psych: Cooperative, normal mood Results & Data Results & Data Vital Signs (Past 12 Hours) Vital Signs Temp Pulse Pulse Resp BP Pulse Ox O2 Del Method 07/13/25 08:03 37.0 C 83 20 156/71 H 96 Room Air 07/13/25 06:45 75 07/13/25 02:07 36.4 C L 73 18 149/65 H 97 Room Air 07/12/25 23:00 80 07/12/25 22:16 36.5 C 75 18 137/61 94 Room Air 07/12/25 21:35 82 19 96 Room Air Diagnostic Findings Reviewed imaging, laboratory and diagnostic studies. Pertinent findings as below. CBC stable Electrolytes stable Magnesium 1.8, improved LFTs within normal range Troponins reviewed
[2025-07-13 09:35] LABS: Hemoglobin A1C 7.5 % (4.5-5.6)
[2025-07-13] MEDS: ASPIRIN 81 MG ECTAB PO SCH (09:35)
[2025-07-13] MEDS: ALBUT/IPRATROP 3MG/0.5MG NEB 3 ML VIAL NEB SCH (10:40)
--- NOTE | 2025-07-13 11:23 | Pharmacy Report ---
Pharmacy Glycemic Short Note 2 - Date of Service July 13, 2025 - Glycemic Short BSG Results (Last 24 hours): 07/12/25 07/12/25 07/12/25 14:19 17:06 20:12 Glucose POC Glucose 225 H 185 H 97 07/13/25 07/13/25 07:34 07:44 Glucose 115 H POC Glucose 117 H OUTPATIENT ANTIDIABETIC REGIMEN: * Lantus 10 units bid, metformin 500 mg bid ASSESSMENT: 07/13 * Patient received total of 21 units of insulin yesterday, of which 10 units were basal insulin * Fasting BSG 115 mg/dL - will continue with basal insulin at HS time * Unclear what PO intake will be today, will provider lower parameter for basal at HS if BSGs trending down 07/12 * 85 year old admitted with shortness of breath/testing positive for COVID. Pharmacy consulted for glycemic management. Plan to start novolog weight based stress 2 dosing for now. Will follow to determine if steroids starting as may need to tighten parameters at that time. PLAN FOR INPATIENT GLYCEMIC CONTROL: * Hold outpatient oral diabetes medications * Basal insulin * Lantus 5-10 units HS * Bolus insulin * NovoLog per scale ACHS or Q6hrs while NPO * Goal Range: Low 110 mg/dL - High 140 mg/dL * Correction Factor: 30 mg/dL/unit * Nutritional / Prandial insulin per carb ratio of 1 unit per 15 grams CHO consumed
[2025-07-13] MEDS: REMDESIVIR 100 MG in SODIUM CHLORIDE 0.9% 230 ML IV SCH (13:10)
[2025-07-13] MEDS: SODIUM CHLOR 7% 4 ML NEB NEB SCH (19:58)
--- NOTE | 2025-07-14 10:11 | Electrocardiogram Report ---
Test Reason : Blood Pressure : */* mmHG Vent. Rate : 85 BPM Atrial Rate : 85 BPM P-R Int : 166 ms QRS Dur : 80 ms QT Int : 348 ms P-R-T Axes : 59 -9 37 degrees QTcB Int : 414 ms Normal sinus rhythm Low voltage QRS Borderline ECG No previous ECGs available Confirmed by Darryl Cook ([id number]) on 07/14/2025 10:10:42 AM Referred By: [facility] Confirmed By: Darryl Cook
--- NOTE | 2025-07-14 12:13 | Discharge Summary ---
Discharge Summary Date of Service July 14, 2025 Principal Dx & Hospital Course #1 = Principal Diagnosis (1) Acute bronchitis due to COVID-19 virus: (2) Myocardial infarction due to demand ischemia: (3) Prostate cancer metastatic to bone: (4) Diabetes mellitus type 2, controlled, with complications: (5) Dementia in Alzheimer's disease: Plan Patient 85-year-old gentleman with significant dementia presented to the emergency room with increasing weakness, fatigue, cough, shortness of breath. In the emergency room tested positive for COVID-19. Patient was admitted to the hospital. After conversation with the family chose to move forward with treatment with remdesivir due to his high risk for severe disease. The patient did well to his hospitalization. He never required supplemental oxygen. Did not meet criteria for treatment with Decadron. His weakness improved. He was treated with some nebulizer treatments and antitussives and mucolytics. On the day of discharge he was sitting up on the edge of his bed. He states he was feeling significantly improved and started to feel strength returned. His cough was less harsh with the use of the guaifenesin syrup. He will complete a 3-day course of remdesivir for prophylaxis against severe disease. He will be able to discharge back to his memory care unit with inhaler and guaifenesin. Reviewed discharge plans with patient's daughter via phone. Notes For Next Care Provider Continue other routine care Can transition guaifenesin syrup to as needed over the next few days Medication Changes From Visit Albuterol inhaler Guaifenesin Admission HPI Per Admitting Provider 85-year-old male with history of dementia, prostate cancer with metastasis, on Lupron, bicalutamide and Flomax, diabetes type 2, hypertension, dyslipidemia presenting from [facility] care unit for dizziness, weakness and shortness of breath which started yesterday. History obtained from patient's daughter Rowena at bedside, as well as ER chart. Patient is a current resident of [facility] care unit. He was noted to have dry cough, associated with some shortness of breath, and weakness since yesterday. No fevers or chills, arthralgias myalgias, nausea or vomiting, abdominal pain Admits to having poor appetite Today, patient was noted to be very weak to the point that he was unable to get up from bed with persistent dizziness, and shortness of breath. At the ER, blood pressure was 92/54, heart rate 92, respiratory 20, pulse oximetry 97% on room air chest x-ray: No pneumonia Respiratory panel positive for COVID-19 Magnesium 1.3 Patient was given 500 cc bolus of IV NSS, IV magnesium blood pressure then improved to systolic 120s On exam, Patient seen resting in bed, comfortable, not in distress, very pleasant Daughter Rowena at the bedside He is oriented x 2-3, answering simple questions appropriately States he feels "so-so" breathing is okay, denies active chest pain, dizziness, headache, abdominal pain, nausea No other new symptoms Admission Exam Per Admitting Provider See H&P Discharge Exam Constitutional: Alert, nontoxic HEENT: Mucous membranes moist. Lungs: Decreased breath sounds, few coarse upper airway rhonchi that improved with cough CV: S1-S2, regular Abdomen: Soft, nontender, nondistended Extremities: No significant edema Neuro: No focal deficits, impaired memory Psych: Cooperative, normal mood Updated Medication List Medication Instructions Recorded Confirmed Type atorvastatin 40 mg tablet 40 mg PO DAILY 07/04/25 07/12/25 History bicalutamide 50 mg tablet 50 mg PO DAILY 07/04/25 07/12/25 History buspirone 10 mg tablet 10 mg PO TID 07/04/25 07/12/25 History escitalopram oxalate 20 mg tablet 20 mg PO DAILY 07/04/25 07/12/25 History insulin glargine 100 unit/mL (3 10 unit subcut BID 07/04/25 07/12/25 History mL) subcutaneous pen (Lantus Solostar U-100 Insulin) metformin 500 mg tablet 1,000 mg PO BID 07/04/25 07/12/25 History tamsulosin 0.4 mg capsule 0.4 mg PO DAILY 07/04/25 07/12/25 History Jardiance 50 mg PO DAILY 07/12/25 07/12/25 History albuterol sulfate 90 mcg/actuation 2 inh inhalation QID PRN shortness 07/14/25 Rx aerosol inhaler of breath or wheezing #6.7 grams aspirin 81 mg tablet,delayed 81 mg PO QAM #300 tabs 07/14/25 Rx release guaifenesin 100 mg/5 mL oral liquid 200 mg (10 mL) PO Q6H #473 mL 07/14/25 Rx Hospital Stay Data Consultations 07/12/25 11:17 ED Decision to Admit Stat Diagnostic Imagining Performed Reviewed imaging, laboratory and diagnostic studies. Pertinent findings as below. Echocardiogram showed no regional wall motion abnormalities, ejection fraction 60 to 65%, normal right ventricle function, small pericardial effusion but no evidence of tamponade, most likely chronic based on appearance. CBC stable Electrolytes within normal range Creatinine 1.02 Hemoglobin A1c 7.5% Pending Results Patient Have Any Pending Studies at Discharge: No Discharge Instructions Given to Patient (Per Discharging Provider) I anticipate you will have a cough for the next several days. It should steadily improve with time Total Time Total Time Spent Total Time Spent (In Minutes): 34
== END 2025-07-14 15:37 | disposition home or self-care (01) | DRG 177 ==
LOC: ED 08:08 → INTOOBSV 11:39 → SUATTDRO 11:39 → 2N 11:39